=== PATIENT | male | born 1965 | race Caucasian/White ===

== ENCOUNTER 2018-07-31 08:02 | Inpatient (IN) ==
--- NOTE | 2018-07-31 09:16 | ED ---
HPI General Chief Complaint: Psychiatric Symptoms Stated Complaint: Psych Eval Time Seen by Provider: 07/31/18 08:25 Source: patient Mode of arrival: ambulatory Limitations: no limitations History of Present Illness HPI Narrative: 53-year-old male with a history of diabetes mellitus type II and a mental health disorder. Pt was brought from [facility] for evaluation of "pain all over". When asked patient why he was here, he said I do not know. Obtaining history was rather challenging as patient denies any medical problems although his paperwork says otherwise. He denies fever, chills, nausea, vomiting or diarrhea. Denies chest pain or shortness of breath. Denies abdominal pain. He says "he needs a full body scan". He does not tell me why. He then asks for 3LPM oxygen although he does not use this at home. Related Data Home Medications Medication Instructions Recorded Confirmed citalopram 20 mg PO DAILY 07/31/18 07/31/18 diltiazem HCl 180 mg PO DAILY 07/31/18 07/31/18 hydrochlorothiazide 12.5 mg PO DAILY 07/31/18 07/31/18 lorazepam 1 mg PO DAILY 07/31/18 07/31/18 metformin 500 mg PO BID 07/31/18 07/31/18 potassium chloride 10 meq PO DAILY 07/31/18 07/31/18 quetiapine 300 mg PO DAILY 07/31/18 07/31/18 tamsulosin 0.4 mg PO DAILY 07/31/18 07/31/18 Allergies Allergy/AdvReac Type Severity Reaction Status Date / Time bupropion [From Wellbutrin] Allergy Hives Verified 07/31/18 08:29 penicillin G Allergy Hives Verified 07/31/18 08:29 Review of Systems ROS: all other systems reviewed are negative [facility] Medical History Medical History Bipolar disorder (Acute) Diabetes (Acute) HTN (hypertension) (Acute) Surgical History Surgical History No history of previous surgery (Acute) Social History Social History Substance History: Active Abuse Second Hand Smoke Exposure: No Smoking Status: Never smoker How Often Do You Have a Drink Containing Alcohol: Never Recent Travel in [facility] within the Last 8 Weeks: No Recent Out of Country Travel within the Last 8 Weeks: No Immunization History Tetanus Immunization: Unsure Exam Narrative Exam Narrative: GENERAL: WD, WN easily agitated, morbidly obese SKIN: Focused skin assessment warm/dry. HEAD: Atraumatic. Normocephalic. EYES: Pupils equal and round. No scleral icterus. No injection or drainage. ENT: No nasal bleeding or discharge. Mucous membranes pink and moist. NECK: Trachea midline. No JVD. CARDIOVASCULAR: Regular rate and rhythm. No murmur appreciated. RESPIRATORY: No accessory muscle use. Clear to auscultation. Breath sounds equal bilaterally. GASTROINTESTINAL: Abdomen protuberant, soft, non-tender, nondistended. Hepatic and splenic margins not palpable. MUSCULOSKELETAL: No obvious deformities. No clubbing. No cyanosis. No edema. No TTP to calves NEUROLOGICAL: Awake and alert. No obvious cranial nerve deficits. Motor grossly within normal limits. Normal speech. Psych Appearance: disheveled Mental Status: mental status grossly normal Speech and Movement: agitated Mood: expansive, paranoid and irritable mood Affect: labile affect Attitude: belligerent Thought Process: confabulating and flight of ideas Thought Content: delusions Judgment: poor Course Initial Documented Vital Signs Temperature 98.6 F 07/31/18 08:22 Pulse Rate 93 H 07/31/18 08:22 Respiratory Rate 22 07/31/18 08:22 Blood Pressure 155/71 H 07/31/18 08:22 Pulse Oximetry 96 07/31/18 08:22 Last Documented Vital Signs Temperature 98.2 F 07/31/18 22:00 Pulse Rate 104 H 07/31/18 22:00 Respiratory Rate 18 07/31/18 22:00 Blood Pressure 175/84 H 07/31/18 22:00 Pulse Oximetry 97 07/31/18 22:00 Medical Decision Making CHARBEL Attestation CHARBEL supervised visit: Yes Attestation: I, Dr. Graham, have reviewed the advance practice practitioner's documentation and am in agreement, met with the patient face to face, made the diagnosis, and the medical decision making was done by me. *My assessment and Findings: Patient is a 52-year-old male who presents " because people think I'm bat sh*t crazy." He states that he has fallen recently and does have some shortness of breath which is chronic and unchanged. While speaking with him he repeatedly made remarks such as "Oh the things I would do to you in bed," "She has a demon in her, but she's fighting him off ... and now she is saved, I saved her," "Do you know why I, God, created women ... yea, you know." He is delusional with disorganized thinking and flight of ideas. He was then placed under a Graham Act and medications were given. Imaging and labs unremarkable. He has been medically cleared to be seen by psychiatry. [facility] Narrative Medical decision making narrative: 53-year-old male presents to the emergency department via [facility] directly from [facility]. After obtaining a further history with the assistance of the nurse, was able to explain that patient was at [facility], was Graham acted and then went to [facility]. Graham act was lifted at [facility] and was transported to [facility]. stated that patient has had an "erratic behavior" for 2 weeks for an unknown reason. At the time of obtaining further history, additional labs and imaging studies ordered. Labs and imaging studies stable. He is medically cleared to see psych. Medical Screen Exam Complete: Yes Emergency Medical Condition: Yes Differential Diagnosis Differential Diagnosis: psychosis, delirium, polysubstance abuse, Lab Data Result diagrams: 07/31/18 09:35 07/31/18 09:35 Lab Results 07/31/18 07/31/18 07/31/18 Range/Units 09:35 09:35 09:35 WBC 6.9 (4.0-11.0) th/mm3 RBC 5.06 (4.50-5.90) mil/mm3 Hgb 15.1 (13.0-17.0) gm/dL Hct 45.6 (39.0-51.0) % MCV 90.1 (80.0-100.0) fL MCH 29.9 (27.0-34.0) pg MCHC 33.2 (32.0-36.0) % RDW 15.1 (11.6-17.2) % Plt Count 337 (150-450) th/mm3 MPV 7.9 (7.0-11.0) fL Neut % (Auto) 56.0 (16.0-70.0) % Lymph % (Auto) 25.5 (9.0-44.0) % [place] % (Auto) 12.4 H (0.0-8.0) % Eos % (Auto) 5.2 H (0.0-4.0) % Baso % (Auto) 0.9 (0.0-2.0) % Neut # (Auto) 3.9 (1.8-7.7) th/mm3 Lymph # (Auto) 1.8 (1.0-4.8) th/mm3 [place] # (Auto) 0.9 (0.0-0.9) th/mm3 Eos # (Auto) 0.4 (0.0-0.4) th/mm3 Baso # (Auto) 0.1 (0.0-0.2) th/mm3 WBC Differential . Differential Comment Auto diff final Sodium 135 L (136-145) meq/L Potassium 4.6 (3.5-5.1) meq/L Chloride 100 (98-107) meq/L Carbon Dioxide 24.1 (21.0-32.0) meq/L Anion Gap 11 (5-15) meq/L BUN 16 (7-18) mg/dL Creatinine 1.29 (0.60-1.30) mg/dL Estimated GFR 59 L (>89) mL/min Random Glucose 98 (74-106) mg/dL Calcium 9.4 (8.5-10.1) mg/dL Total Bilirubin 0.5 (0.2-1.0) mg/dL AST 48 H (15-37) U/L ALT 47 (12-78) U/L Alkaline Phosphatase 57 (45-117) U/L Total Protein 8.4 H (6.4-8.2) g/dL Albumin 4.0 (3.4-5.0) g/dL TSH 0.924 (0.358-3.740) uIU/mL Urine Color (Yellw/Straw) Urine Clarity (Clear) Urine pH (5.0-8.5) Ur Specific [place] (1.002-1.035) Urine Protein (Neg-Trace) mg/dL Urine Glucose (UA) (Negative) mg/dL Urine Ketones (Negative) mg/dL Urine Occult Blood (Negative) Urine Nitrate (Negative) Urine Bilirubin (Negative) Urine Urobilinogen (Less than 2) mg/dL Ur Leukocyte Esterase (Negative) Micro UA Comment Ur Microscopic Review Urine Culture Comments Urine Opiates Screen (Neg) Ur Barbiturates Screen (Neg) Ur Amphetamines Screen (Neg) U Benzodiazepines Scrn (Neg) Urine Cocaine Screen (Neg) U Cannabinoids Screen (Neg) Serum Alcohol Less than 3 (0-5) mg/dL 08/01/18 08/01/18 Range/Units 00:27 00:27 WBC (4.0-11.0) th/mm3 RBC (4.50-5.90) mil/mm3 Hgb (13.0-17.0) gm/dL Hct (39.0-51.0) % MCV (80.0-100.0) fL MCH (27.0-34.0) pg MCHC (32.0-36.0) % RDW (11.6-17.2) % Plt Count (150-450) th/mm3 MPV (7.0-11.0) fL Neut % (Auto) (16.0-70.0) % Lymph % (Auto) (9.0-44.0) % [place] % (Auto) (0.0-8.0) % Eos % (Auto) (0.0-4.0) % Baso % (Auto) (0.0-2.0) % Neut # (Auto) (1.8-7.7) th/mm3 Lymph # (Auto) (1.0-4.8) th/mm3 [place] # (Auto) (0.0-0.9) th/mm3 Eos # (Auto) (0.0-0.4) th/mm3 Baso # (Auto) (0.0-0.2) th/mm3 WBC Differential Differential Comment Sodium (136-145) meq/L Potassium (3.5-5.1) meq/L Chloride (98-107) meq/L Carbon Dioxide (21.0-32.0) meq/L Anion Gap (5-15) meq/L BUN (7-18) mg/dL Creatinine (0.60-1.30) mg/dL Estimated GFR (>89) mL/min Random Glucose (74-106) mg/dL Calcium (8.5-10.1) mg/dL Total Bilirubin (0.2-1.0) mg/dL AST (15-37) U/L ALT (12-78) U/L Alkaline Phosphatase (45-117) U/L Total Protein (6.4-8.2) g/dL Albumin (3.4-5.0) g/dL TSH (0.358-3.740) uIU/mL Urine Color Colorless (Yellw/Straw) Urine Clarity Clear (Clear) Urine pH 6.0 (5.0-8.5) Ur Specific [place] 1.001 L (1.002-1.035) Urine Protein Negative (Neg-Trace) mg/dL Urine Glucose (UA) Negative (Negative) mg/dL Urine Ketones Negative (Negative) mg/dL Urine Occult Blood Negative (Negative) Urine Nitrate Negative (Negative) Urine Bilirubin Negative (Negative) Urine Urobilinogen Less than 2 (Less than 2) mg/dL Ur Leukocyte Esterase Negative (Negative) Micro UA Comment Culture not ind Ur Microscopic Review Not Reportable Urine Culture Comments Culture not ind Urine Opiates Screen Neg (Neg) Ur Barbiturates Screen Neg (Neg) Ur Amphetamines Screen Neg (Neg) U Benzodiazepines Scrn Neg (Neg) Urine Cocaine Screen Neg (Neg) U Cannabinoids Screen Neg (Neg) Serum Alcohol (0-5) mg/dL Imaging Data Radiologist's impression: Head CT 07/31/18 08:56 CONCLUSION: 1. No acute intracranial abnormalities seen. 2. Maxillary sinus disease. . Chest X-Ray 07/31/18 10:24 CONCLUSION: No acute cardiopulmonary process. Discharge Plan Discharge Disposition Patient Disposition: 30 Still Patient Discharge Condition Condition: Stable Discharge Details Diagnosis: Schizophrenia Physicians Team ED Provider: Marlen Graham ED Midlevel Provider: Ileana Santos Primary Care Provider: UNKNOWN, Rxs /Orders / Referrals /Forms Prescriptions: No Action metformin 500 mg Tablet 500 mg PO BID RF: 0 potassium chloride 10 mEq Capsule, Extended Release 10 meq PO DAILY RF: 0 quetiapine 300 mg Tablet 300 mg PO DAILY RF: 0 citalopram 20 mg Tablet 20 mg PO DAILY RF: 0 tamsulosin 0.4 mg Capsule 0.4 mg PO DAILY RF: 0 lorazepam 1 mg Tablet 1 mg PO DAILY RF: 0 diltiazem HCl 180 mg Capsule,Ext.Rel 24h Degradable 180 mg PO DAILY RF: 0 hydrochlorothiazide 12.5 mg Tablet 12.5 mg PO DAILY RF: 0 Status ED Status: Medically Cleared
[2018-07-31 09:46] LABS: Baso # (Auto) 0.1 th/mm3 (0.0-0.2); Baso % (Auto) 0.9 % (0.0-2.0); Eos # (Auto) 0.4 th/mm3 (0.0-0.4); Eos % (Auto) 5.2 % (0.0-4.0); Hematocrit 45.6 % (39.0-51.0); Hemoglobin 15.1 gm/dL (13.0-17.0); Lymph # (Auto) 1.8 th/mm3 (1.0-4.8); Lymph % (Auto) 25.5 % (9.0-44.0); Mean Corpuscular HGB Conc 33.2 % (32.0-36.0); Mean Corpuscular Hemoglobin 29.9 pg (27.0-34.0); Mean Corpuscular Volume 90.1 fL (80.0-100.0); Mean Platelet Volume 7.9 fL (7.0-11.0); Mono # (Auto) 0.9 th/mm3 (0.0-0.9); Mono % (Auto) 12.4 % (0.0-8.0); Neut # (Auto) 3.9 th/mm3 (1.8-7.7); Platelet Count 337 th/mm3 (150-450); Red Blood Count 5.06 mil/mm3 (4.50-5.90); Red Cell Distribution Width 15.1 % (11.6-17.2); White Blood Count 6.9 th/mm3 (4.0-11.0)
[2018-07-31] MEDS ORDERED: Haloperidol Inj 5 MG/ML Ampul IM ONE (09:57)
[2018-07-31 10:05] LABS: Alanine Aminotransferase 47 U/L (12-78)
[2018-07-31 10:15] LABS: Alkaline Phosphatase 57 U/L (45-117); Thyroid Stimulating Hormone 0.924 uIU/mL (0.358-3.740); Total Protein 8.4 g/dL (6.4-8.2)
[2018-07-31 10:23] LABS: Anion Gap 11 meq/L (5-15); Aspartate Aminotransferase 48 U/L (15-37); Blood Urea Nitrogen 16 mg/dL (7-18); Calcium 9.4 mg/dL (8.5-10.1); Carbon Dioxide 24.1 meq/L (21.0-32.0); Chloride 100 meq/L (98-107); Glomerular Filtration Rate 59 mL/min (>89); Glucose,Random 98 mg/dL (74-106); Potassium 4.6 meq/L (3.5-5.1); Sodium 135 meq/L (136-145)
--- NOTE | 2018-07-31 10:49 | CT ---
EXAM DATE: 07/31/2018 8:59 AM EDT AGE/SEX: 53 years / Male INDICATIONS: Altered Mental Status CLINICAL DATA: This is the patient's initial encounter. Patient reports that signs and symptoms have been present for 1 day and indicates a pain score of 0/10. MEDICAL/SURGICAL HISTORY: Diabetes. Hypertension. None. RADIATION DOSE: 66.34 CTDI (mGy) COMPARISON: . TECHNIQUE: CT of the head without contrast. Using automated exposure control and adjustment of the mA and/or kV according to patient size, radiation dose was kept as low as reasonably achievable to ob tain optimal diagnostic quality images. DICOM format image data is available electronically for revi ew and comparison. FINDINGS: Cerebrum: The ventricles are normal for age. No evidence of midline shift, mass lesion, hemorrhage or acute infarction. No extraaxial fluid collections are seen. Posterior Fossa: The cerebellum and brainstem are intact. The 4th ventricle is midline. The cerebe llopontine angle is unremarkable. Extracranial: The visualized portion of the orbits is intact. There is mucosal disease at the maxill leodan sinuses. Skull: The calvaria is intact. No evidence of skull fracture. CONCLUSION: 1. No acute intracranial abnormalities seen. 2. Maxillary sinus disease. . Electronically signed by: Cory Cary MD 07/31/2018 10:48 AM EDT
--- NOTE | 2018-07-31 12:07 | XR ---
EXAM DATE: 07/31/2018 10:24 AM EDT AGE/SEX: 53 years / Male INDICATIONS: Shortness of breath. CLINICAL DATA: This is the patient's initial encounter. Patient reports that signs and symptoms have been present for 1 day and indicates a pain score of 0/10. MEDICAL/SURGICAL HISTORY: . SVT. None. COMPARISON: . FINDINGS: There appears to be some blurring of the left lateral chest. This is likely technical. The lungs appe ar grossly clear. The heart size is normal. CONCLUSION: No acute cardiopulmonary process. Electronically signed by: Cory Cary MD 07/31/2018 12:05 PM EDT
[2018-08-01 00:44] LABS: Amphetamine Screen,Urine Neg (Neg); Barbiturate Screen,Urine Neg (Neg); Bilirubin,Urine Negative (Negative); Cannabinoid Screen,Urine Neg (Neg); Clarity,Urine Clear (Clear); Cocaine Screen,Urine Neg (Neg); Color,Urine Colorless (Yellw/Straw); Glucose,Urine (UA) Negative (Negative); Leukocyte Esterase,Urine Negative (Negative); Nitrite,Urine Negative (Negative); Specific Gravity,Urine 1.001 (1.002-1.035)
[2018-08-01 00:48] LABS: Opiate Screen,Urine Neg (Neg)
[2018-08-01] MEDS ORDERED: Bisacodyl 10 MG Supp RECTAL PRN (09:50)
[2018-08-01] MEDS ORDERED: Aluminum/Magnesium/Simethacone Susp 30 ML UDC PO PRN (09:50)
[2018-08-01] MEDS ORDERED: ARIPiprazole 5 MG Tablet PO SCH (11:45)
--- NOTE | 2018-08-01 11:55 | P.HPPSY ---
Provisional Diagnosis Admission Date: August 01, 2018 09:51 [place] I.: Unspecified psychosis, R/O schizophrenia, r/o bipolar disorder with psychotic features,r/o schizoaffective disorder [place] II.: Deferred [place] III.: Diabetes, hypertension, sleep apnea, SVT Competence Certification of Person's Competence To Provide Express and Informed Consent I have personally examined Andres Monge, a person being served at [facility] on, August 01, 2018 1141. Express and informed consent means consent voluntarily given in writing, by a competent person, after sufficient explanation and disclosure of the subject matter involved to enable the person to make a knowing and willful decision without any element of force, fraud, deceit, duress, or other form of constraint or coercion. This person is 18 years of age or older, is not now known to be incompetent to consent to treatment with a guardian advocate, and does not have a health care surrogate or proxy currently making medical treatment decisions. I have found this person to be one of the following: [] Competent to provide express and informed consent, as defined above, for voluntary admission to this facility and is competent to provide express and informed consent for treatment. He/she has the consistent capacity to make well reasoned, willful, and knowing decisions concerning his or her medical or mental health treatment. The person fully and consistently understands the purpose of the admission for examination/placement and is fully capable of personally exercising all rights assured [place] [] Incompetent to provide express and informed consent to voluntary admission, and this is incompetent to provide express and informed consent to treatment. The person must be transferred to involuntary status and a petition for a guardian advocate filed with the Circuit Court. [x] Refusing to provide express and informed consent to voluntary admission but is competent to provide express and informed consent for treatment. The person must be discharged or transferred to involuntary status. Form shall be completed within 24 hours of a person's arrival at the receiving facility and filed in the clinical record of each person: 1. Admitted on a voluntary basis 2. Permitted to provide express and informed consent to his/her own treatment 3. Allowed to transfer from involuntary to voluntary status 4. Prior to permitting a person to consent to his or her own treatment after having been previously found incompetent to consent to treatment. History of Present Illness Capacity: Has capacity History of Present Illness: The patient is a 53-year-old man, domiciled with his in [place], unemployed, supported by [facility], with a psychiatric history of bipolar disorder, schizophrenia, cannabis use disorder, he denies previous psychiatric admissions , denies previous suicide attempts, he is not in psychotropics, he has a significant medical history of diabetes, hypertension, and diabetes, sleep apnea , who was brought from [facility] for evaluation of "pain all over". When asked patient why he was here, he said I do not know. Obtaining history was rather challenging as patient denies any medical problems although his paperwork says otherwise. The patient was transferred from medicine to psychiatry due to disorganized speech, significant delusional thought process. Chart was reviewed. No collateral information available at this moment. On my psychiatric evaluation I find a patient that is quite agitated, with expansive affect, and stating that he does not want to speak with anybody unless "you are proven [employer]". When I asked the patient how is he doing, his answer is "I know that you know what is going on, if you read the newspaper, you will known what is going on right now". He says that decreased him people have been persecuted since yesterday and his is behind a plate with the FBI to kill him. He says that he does not feel safe in the unit, "there are black people here that have been watching at me through the camera". He says that everything started when he discovered that his has a boyfriend "and they both have been plotting to kill me". The patient is quite talkative, tangential , at times disorganized, very perseverant, but he is redirectable. He denies suicidal and homicidal ideation, he denies visual and auditory hallucinations, has prominent paranoia, delusions of reference, thought broadcasting. He is fully oriented x3, no attention deficit, no filtration of consciousness present at this moment He says that he was diagnosed with schizophrenia and bipolar disorder by mistake many years ago, he says that he went to the [facility] to take his son who is bipolar for treatment, "and they turned on me stating that I was also bipolar". He denies ever being psychotropic medications, he denies the use of illegal drugs or alcohol. As per staff, the patient has been intrusive in the unit, making accusations, loud at times, mostly redirectable, but some point last night he needed Haldol 10 mg IM to calm down PPHx: psychiatric history of bipolar disorder, schizophrenia, cannabis use disorder, he denies previous psychiatric admissions, denies previous suicide attempts, he is not in psychotropics PMHx: he has a significant medical history of diabetes, hypertension, and diabetes, sleep apnea Substance Hx: He denies the use of illegal drugs and alcohol Family Hx : Son is bipolar, he has a sister with schizophrenia Social Hx: The patient was born and raised in [place] [facility], he lives in [place] with his , unemployed, supported by [facility], his highest level of education is some college. - Inpatient Certification I certify that the inpatient services were ordered in accordance with Medicare regulations governing the order. This includes certification that hospital inpatient services are reasonable and necessary and in the case of services not specified as inpatient-only under 42 CFR 419.22(n), that they are appropriately provided as inpatient services in accordance to with the 2-midnight benchmark under 43 CFR 412.3(e) I certify that inpatient psychiatric hospital services are medically necessary. Evaluation and treatment and/or diagnostic testing are expected to improve the patient's condition. The patient needs on a daily basis, active treatment furnished directly by or requiring the supervision of inpatient psychiatric facility personnel. Estimated Total Length of Stay (Days): 7 Plans for Post Hospital Care: Home Review of Systems All other systems reviewed negative except as stated in HPI Psychiatric: Reports difficulty concentrating, Reports irritability, Reports mood swings, Reports paranoia PMFSH - History History Provided By: Patient - Medical History Medical History: Medical History (Last Updated 07/31/18 @ 08:35 by Inez Guerrero) Bipolar disorder Diabetes HTN (hypertension) - Surgical History Surgical History: Surgical History (Last Updated 07/31/18 @ 08:35 by Inez Guerrero) No history of previous surgery - Tobacco History Second Hand Smoke Exposure: No Smoking Status: Never smoker - Alcohol History How Often Do You Have a Drink Containing Alcohol: Never - Substance Use History Substance History: Active Abuse - Substance Use Type Marijuana Status: Active Route Used: By Mouth - Travel History Recent Travel in the [place] Within the Last 8 Weeks: No Recent Travel Out of the Country Within the Last 8 Weeks: No - Immunization History Tetanus Immunization: Unsure Medications and Allergies Active Medications: Active Medications Al Hydrox/Mg Hydrox/Simethicone (Mag-Al Plus Susp Liq) 30 ml PO Q6H PRN PRN Reason: DYSPEPSIA Al Hydroxide/Mg Hydroxide (Milk Of Magnesia Liq) 30 ml PO Q12H PRN PRN Reason: Mild Constipation Aripiprazole (Abilify) 5 mg PO DAILY [facility] Bisacodyl (Dulcolax Supp) 10 mg RECTAL DAILY PRN PRN Reason: SEVERE CONSITIPATION Lactulose (Lactulose Liq) 30 ml PO DAILY PRN PRN Reason: SEVERE CONSITIPATION Senna/Docusate Sodium (Reba-Colace) 1 tab PO BID [facility] Sennosides (Senokot) 17.2 mg PO Q12H PRN PRN Reason: Moderate Constipation Allergies Allergy/AdvReac Type Severity Reaction Status Date / Time bupropion [From Wellbutrin] Allergy Hives Verified 07/31/18 08:29 penicillin G Allergy Hives Verified 07/31/18 08:29 Home Medications Medication Instructions Recorded Confirmed Type citalopram 20 mg PO DAILY 07/31/18 07/31/18 History diltiazem HCl 180 mg PO DAILY 07/31/18 07/31/18 History hydrochlorothiazide 12.5 mg PO DAILY 07/31/18 07/31/18 History lorazepam 1 mg PO DAILY 07/31/18 07/31/18 History metformin 500 mg PO BID 07/31/18 07/31/18 History potassium chloride 10 meq PO DAILY 07/31/18 07/31/18 History quetiapine 300 mg PO DAILY 07/31/18 07/31/18 History tamsulosin 0.4 mg PO DAILY 07/31/18 07/31/18 History Results - Labs CBC & Chem 7: 07/31/18 09:35 07/31/18 09:35 Labs: Laboratory Results - last 24 hr 08/01/18 08/01/18 00:27 00:27 Urine Color Colorless Urine Clarity Clear Urine pH 6.0 Ur Specific [place] 1.001 L Urine Protein Negative Urine Glucose (UA) Negative Urine Ketones Negative Urine Occult Blood Negative Urine Nitrate Negative Urine Bilirubin Negative Urine Urobilinogen Less than 2 Ur Leukocyte Esterase Negative Micro UA Comment Culture not ind Ur Microscopic Review Not Reportable Urine Culture Comments Culture not ind Urine Opiates Screen Neg Ur Barbiturates Screen Neg Ur Amphetamines Screen Neg U Benzodiazepines Scrn Neg Urine Cocaine Screen Neg U Cannabinoids Screen Neg - Imaging Impressions Chest X-Ray 07/31/18 10:24 CONCLUSION: No acute cardiopulmonary process. Exam Vital signs: Vital Signs 07/31/18 18:00 07/31/18 22:00 Temperature 98.6 F 98.2 F Pulse Rate 97 H 104 H Respiratory Rate 18 18 Blood Pressure 172/99 H 175/84 H Pulse Oximetry 96 97 Intake & Output 07/31/18 08/01/18 08/01/18 18:59 06:59 18:59 Weight 178.2 kg Narrative: No tremors, no EPS, no psychomotor agitation or retardation, no gait disturbance - Constitutional mild distress - Routine HEENT Exam Head: Present: normocephalic, atraumatic Eye: Present: EOMI, PERRL ENT: Present: mucous membranes moist Mental Status Examination Appearance: Dirty, Disheveled Consciousness: Alert Orientation: x4 Motor Activity: Normal gait Speech: Unremarkable Language: Adequate Fund of Knowledge: Adequate Attention and Concentration: Adequate Memory: Unremarkable Mood: Appropriate Affect: Appropriate Thought Process & Associations: Tangential Thought Content: Bizarre thinking, Ideas of reference, Derealization, Preoccupations, Delusional Hallucination Type: None Delusion Type: Bizarre, Paranoid Suicidal Ideation: No Suicidal Plan: No Suicidal Intention: No Homicidal Ideation: No Homicidal Plan: No Homicidal Intention: No Insight: Poor Judgment: Poor Assessment and Plan - Assessment (1) Unspecified psychosis Code(s): F29 - Unspecified psychosis not due to a substance or known physiological condition Status: Acute - Plan Plan: Estimated LOS: [] days On psychiatric evaluation today I find a patient that is acutely delusional, with prominent paranoia and reality distortion, delusions of reference, thought broadcasting, a little bit agitated, quite difficult to handle in the unit, making accusations towards staff, has needed ETO's in order to calm him down. The patient reports past psychiatric history of schizophrenia, bipolar disorder , but he denies previous psychiatric hospitalizations, he denies previous suicide attempts, he is not in psychotropics at this moment. Given his level of psychosis the patient has increased risk of danger to self and others as well as self neglecting behavior. Patient needs psychiatric admission for stabilization. Given her multiple comorbidities I will start Abilify 5 mg daily , also with the idea of bridging him to Abilify Maintena. Patient will be transferred to E. will consult psychiatry for second opinion, will consult hospitalist to manage multiple medical conditions. Support, motivational psychoeducation provided. Justification for Continued Inpatient Stay: Patient will be admitted in psychiatry.
[2018-08-01] MEDS ORDERED: Dextrose 50% in Water 50 ML Vial IV.PUSH PRN (14:36)
--- NOTE | 2018-08-01 14:53 | P.CON ---
History of Present Illness Service: [facility] Consult date: 08/01/18 Requesting Physician: Wes Sethi Reason for Consult: Medical management Primary Care Provider: UNKNOWN History of Present Illness: Mr. Monge is a 53-year-old white male with significant past medical history bipolar disease, schizophrenia, cannabis use, hypertension, obesity, type 2 diabetes, sleep apnea uses CPAP, SVT, frequent psychiatric admissions. Patient is examined with the tech at bedside. Patient initially presented to [facility] for evaluation of "pain all over". During evaluation in the ER, patient was found with disorganized speech, delusional. Per discussion with nursing, patient has been in and out of psychiatric facilities in the last couple of weeks. Hospitalist services are requested to assist with medical management. Patient endorses he uses CPAP at home for history of sleep apnea. He has type 2 diabetes for which she is on metformin, states that was given also to help her lose weight. Indicates that he has not slept in over 50 hours and is very tired and just wants to go upstairs to take a nap. He denies any chest pain, no shortness of breath. Has history of pedal edema for which he is on hydrochlorothiazide. No history of CHF. Denies any recent fevers, chills. Endorses constipation. Voiding well. He denies history of bipolar disease and schizophrenia, indicates he is here because his got mad at him. He denies use of alcohol, no tobacco abuse. Indicates that he smokes marijuana because "it is legal". Has no other complaints at this time. Review of Systems All other systems reviewed negative except as stated in HPI PMFSH - History History Provided By: Patient - Medical History Medical History: Medical History (Last Updated 08/01/18 @ 14:39 by AGUILAR Caicedo) Bipolar disorder DDD (degenerative disc disease) Diabetes HTN (hypertension) Meniscal injury Obesity Pedal edema SVT (supraventricular tachycardia) Sleep apnea - Surgical History Surgical History: Surgical History (Last Updated 08/01/18 @ 14:39 by AGUILAR Caicedo) Hx of left knee surgery No history of previous surgery - Family History Family History: Family History (Last Updated 08/01/18 @ 14:40 by AGUILAR Caicedo) Father CAD (coronary artery disease) Son Bipolar disorder - Social History I have reviewed the patient's Social History: Yes - Tobacco History Second Hand Smoke Exposure: No Smoking Status: Never smoker - Alcohol History How Often Do You Have a Drink Containing Alcohol: Never - Substance Use History Substance History: Active Abuse - Substance Use Type Marijuana Status: Active Route Used: By Mouth - Travel History Recent Travel in the [place] Within the Last 8 Weeks: No Recent Travel Out of the Country Within the Last 8 Weeks: No - Immunization History Tetanus Immunization: Unsure Medications and Allergies Active Medications: Active Medications Al Hydrox/Mg Hydrox/Simethicone (Mag-Al Plus Susp Liq) 30 ml PO Q6H PRN PRN Reason: DYSPEPSIA Al Hydroxide/Mg Hydroxide (Milk Of Magnesia Liq) 30 ml PO Q12H PRN PRN Reason: Mild Constipation Aripiprazole (Abilify) 5 mg PO DAILY [facility] Last Admin: 08/01/18 13:10 Dose: 5 mg Bisacodyl (Dulcolax Supp) 10 mg RECTAL DAILY PRN PRN Reason: SEVERE CONSITIPATION Dextrose (D50w Vial) 50 ml IV.PUSH UNSCH PRN PRN Reason: PER HYPOGLYCEMIA PROTOCOL Lactulose (Lactulose Liq) 30 ml PO DAILY PRN PRN Reason: SEVERE CONSITIPATION Metformin HCl (Glucophage) 500 mg PO BID [facility] Non-Formulary Medication (Hydrochlorothiazide [Hydrochlorothiazide]) 12.5 mg PO DAILY [facility] Non-Formulary Medication (Diltiazem Hcl [Diltiazem Hcl]) 180 mg PO DAILY [facility] Potassium Chloride (Kcl) 10 meq PO DAILY [facility] Senna/Docusate Sodium (Reba-Colace) 1 tab PO BID [facility] Sennosides (Senokot) 17.2 mg PO Q12H PRN PRN Reason: Moderate Constipation Tamsulosin HCl (Flomax) 0.4 mg PO DAILY [facility] Allergies Allergy/AdvReac Type Severity Reaction Status Date / Time bupropion [From Wellbutrin] Allergy Hives Verified 07/31/18 08:29 penicillin G Allergy Hives Verified 07/31/18 08:29 Home Medications Medication Instructions Recorded Confirmed Type citalopram 20 mg PO DAILY 07/31/18 07/31/18 History diltiazem HCl 180 mg PO DAILY 07/31/18 07/31/18 History hydrochlorothiazide 12.5 mg PO DAILY 07/31/18 07/31/18 History lorazepam 1 mg PO DAILY 07/31/18 07/31/18 History metformin 500 mg PO BID 07/31/18 07/31/18 History potassium chloride 10 meq PO DAILY 07/31/18 07/31/18 History quetiapine 300 mg PO DAILY 07/31/18 07/31/18 History tamsulosin 0.4 mg PO DAILY 07/31/18 07/31/18 History Physical Exam Vital signs: Vital Signs 07/31/18 18:00 07/31/18 22:00 08/01/18 11:12 Temperature 98.6 F 98.2 F Pulse Rate 97 H 104 H 89 Respiratory Rate Blood Pressure 172/99 H 175/84 H 153/82 H Pulse Oximetry 96 97 97 Intake & Output 07/31/18 08/01/18 08/01/18 18:59 06:59 18:59 Weight 178.2 kg Narrative: GENERAL: 53-year-old obese male. No apparent distress. SKIN: Warm and dry. HEAD: Atraumatic. Normocephalic. EYES: Pupils equal and round. No scleral icterus. No injection or drainage. ENT: No nasal bleeding or discharge. Mucous membranes pink and moist. NECK: Trachea midline. No JVD. CARDIOVASCULAR: Regular rate and rhythm. RESPIRATORY: No accessory muscle use. Clear to auscultation. Breath sounds equal bilaterally. Poor inspiratory effort. GASTROINTESTINAL: Abdomen soft, non-tender, nondistended. Hepatic and splenic margins not palpable. MUSCULOSKELETAL: Extremities without clubbing, cyanosis, or edema. No obvious deformities. Left knee scar NEUROLOGICAL: Awake, alert oriented x3. No focal deficits. Speech is clear. PSYCHIATRIC: Mildly anxious Assessment and Plan - Plan 53-year-old male with history of bipolar disease, schizophrenia, hypertension, diabetes, SVT, sleep apnea. According to [place] with delusions, disorganized thinking. Recent hospital admissions to psychiatric facilities in [place]. Patient to be admitted to medical psych Bipolar disease, schizophrenia Psychosis Continue with psychiatric management Sleep apnea Patient is okay to use CPAP from home, to bring Type 2 diabetes Resume metformin Accu-Cheks before meals and at bedtime with insulin therapy Hypertension Pedal edema History of SVT -Continue hydrochlorothiazide and daily potassium -Continue Cardizem Obesity Patient needs to lose weight Diabetic diet Enlarged prostate Continue with Flomax Labs reviewed, stable other than mild elevation in AST CT of the head negative Chest x-ray no significant findings DVT prophylaxispatient is ambulatory Plan of care discussed with patient and RN. Thank you for this consultation Code Status: Full Discussed Condition With: Pt, handkerchief cutter Planning: Per primary care team
[2018-08-01] MEDS: Insulin NovoLOG Aspart Correctional Sugar Inj SQ SCH ×2 (17:32→20:47)
[2018-08-01] MEDS: Senna/Docusate Sodium 8.6/50 MG Tablet PO SCH (20:47)
[2018-08-02 07:50] LABS: Calcium 8.8 mg/dL (8.5-10.1); Carbon Dioxide 28.8 meq/L (21.0-32.0)
[2018-08-02 07:54] LABS: Chol/HDL Ratio 2.24 Ratio; HDL Cholesterol 54.4 mg/dL (40.0-60.0)
--- NOTE | 2018-08-02 08:20 | P.CONPSY ---
Provisional Diagnosis Admission Date: August 01, 2018 09:51 [place] I.: Unspecified psychosis, R/O schizophrenia, r/o bipolar disorder with psychotic features,r/o schizoaffective disorder [place] II.: Deferred [place] III.: Diabetes, hypertension, sleep apnea, SVT History of Present Illness Service: Psychiatry Consult date: 08/02/18 Requesting Physician: Wes Sethi Reason for Consult: Second opinion Primary Care Provider: UNKNOWN [facility] - History History Provided By: Patient - Medical History Medical History: Medical History (Last Updated 08/01/18 @ 14:39 by AGUILAR Caicedo) Bipolar disorder DDD (degenerative disc disease) Diabetes HTN (hypertension) Meniscal injury Obesity Pedal edema SVT (supraventricular tachycardia) Sleep apnea - Surgical History Surgical History: Surgical History (Last Updated 08/01/18 @ 14:39 by AGUILAR Caicedo) Hx of left knee surgery No history of previous surgery - Family History Family History: Family History (Last Updated 08/01/18 @ 14:40 by AGUILAR Caicedo) Father CAD (coronary artery disease) Son Bipolar disorder - Tobacco History Second Hand Smoke Exposure: No Smoking Status: Never smoker - Alcohol History How Often Do You Have a Drink Containing Alcohol: Never - Substance Use History Substance History: Active Abuse - Substance Use Type Marijuana Status: Active Route Used: By Mouth - Travel History Recent Travel in the USA Within the Last 8 Weeks: No Recent Travel Out of the Country Within the Last 8 Weeks: No - Immunization History Tetanus Immunization: Unsure Medications and Allergies Active Medications: Active Medications Al Hydrox/Mg Hydrox/Simethicone (Mag-Al Plus Susp Liq) 30 ml PO Q6H PRN PRN Reason: DYSPEPSIA Al Hydroxide/Mg Hydroxide (Milk Of Magnesia Liq) 30 ml PO Q12H PRN PRN Reason: Mild Constipation Aripiprazole (Abilify) 5 mg PO DAILY [facility] Last Admin: 08/01/18 13:10 Dose: 5 mg Bisacodyl (Dulcolax Supp) 10 mg RECTAL DAILY PRN PRN Reason: SEVERE CONSITIPATION Dextrose (D50w Vial) 50 ml IV.PUSH UNSCH PRN PRN Reason: PER HYPOGLYCEMIA PROTOCOL Diltiazem HCl (Cardizem Cd 24hr) 180 mg PO DAILY [facility] Glucagon (Glucagon Inj) 1 mg OTHER PRN PRN PRN Reason: for Hypoglycemia Protocol Hydrochlorothiazide (Microzide) 12.5 mg PO DAILY [facility] Insulin Aspart (Novolog Insulin Correctional Sugar Inj) 0 unit SQ ACHS [facility]; Protocol Last Admin: 08/01/18 20:47 Dose: Not Given Lactulose (Lactulose Liq) 30 ml PO DAILY PRN PRN Reason: SEVERE CONSITIPATION Metformin HCl (Glucophage) 500 mg PO BID [facility] Last Admin: 08/01/18 20:47 Dose: 500 mg Potassium Chloride (Kcl) 10 meq PO DAILY [facility] Senna/Docusate Sodium (Reba-Colace) 1 tab PO BID [facility] Last Admin: 08/01/18 20:47 Dose: 1 tab Sennosides (Senokot) 17.2 mg PO Q12H PRN PRN Reason: Moderate Constipation Tamsulosin HCl (Flomax) 0.4 mg PO DAILY [facility] Allergies Allergy/AdvReac Type Severity Reaction Status Date / Time bupropion [From Wellbutrin] Allergy Hives Verified 07/31/18 08:29 penicillin G Allergy Hives Verified 07/31/18 08:29 Home Medications Medication Instructions Recorded Confirmed Type citalopram 20 mg PO DAILY 07/31/18 07/31/18 History diltiazem HCl 180 mg PO DAILY 07/31/18 07/31/18 History hydrochlorothiazide 12.5 mg PO DAILY 07/31/18 07/31/18 History lorazepam 1 mg PO DAILY 07/31/18 07/31/18 History metformin 500 mg PO BID 07/31/18 07/31/18 History potassium chloride 10 meq PO DAILY 07/31/18 07/31/18 History quetiapine 300 mg PO DAILY 07/31/18 07/31/18 History tamsulosin 0.4 mg PO DAILY 07/31/18 07/31/18 History Exam Vital signs: Vital Signs 08/01/18 11:12 08/01/18 15:00 08/01/18 18:04 Temperature 97.7 F 97.4 F L Pulse Rate 89 78 82 Respiratory Rate 18 18 18 Blood Pressure 153/82 H 154/69 H 158/86 H Pulse Oximetry 97 92 L 96 08/02/18 05:29 Temperature 97.5 F L Pulse Rate 79 Respiratory Rate 22 Blood Pressure 110/60 Pulse Oximetry 95 Intake & Output 10/06/1108/02/18 08/02/18 18:59 06:59 18:59 Intake Total 720 / 720 0 / 0 Balance 720 / 720 0 / 0 Weight 168.9 kg Intake: Oral 720 / 720 0 / 0 Other: Weight On Admission 168.9 kg Mental Status Examination Appearance: Dirty, Disheveled Consciousness: Alert Orientation: x4 Motor Activity: Normal gait Speech: Unremarkable Language: Adequate Fund of Knowledge: Adequate Attention and Concentration: Adequate Memory: Unremarkable Mood: Appropriate Affect: Appropriate Thought Process & Associations: Tangential Thought Content: Bizarre thinking, Ideas of reference, Derealization, Preoccupations, Delusional Hallucination Type: None Delusion Type: Bizarre, Paranoid Suicidal Ideation: No Suicidal Plan: No Suicidal Intention: No Homicidal Ideation: No Homicidal Plan: No Homicidal Intention: No Insight: Poor Judgment: Poor Assessment and Plan - Assessment (1) Unspecified psychosis Code(s): F29 - Unspecified psychosis not due to a substance or known physiological condition Status: Acute
[2018-08-02] MEDS: Insulin NovoLOG Aspart Correctional Sugar Inj SQ SCH ×4 (09:17→20:21)
[2018-08-02] MEDS: Potassium Chloride 10 MEQ ER Capsule PO SCH (09:18)
[2018-08-02] MEDS: dilTIAZem CD 180 MG Capsule PO SCH (09:18)
[2018-08-02] MEDS: Senna/Docusate Sodium 8.6/50 MG Tablet PO SCH (09:18)
[2018-08-02] MEDS: ARIPiprazole 10 MG Tablet PO SCH (09:18)
--- NOTE | 2018-08-02 15:09 | P.PN ---
Subjective Interval history: Up on patient with morbid obesity, diabetes, hypertension. Patient seen and examined. Patient encountered in his room. Witnessed ambulate around the room without any difficulty. Denies any acute medical complaints. Denies any chest pain or shortness of breath. Denies any nausea, vomiting or abdominal pain. Discussed with nursing staff, no adverse events noted. Physical Exam Vital signs: Vital Signs 08/01/18 18:04 08/02/18 05:29 Temperature 97.4 F L 97.5 F L Pulse Rate 82 79 Respiratory Rate 18 22 Blood Pressure 158/86 H 110/60 Pulse Oximetry 96 95 Intake & Output 08/01/18 08/02/18 08/02/18 18:59 06:59 18:59 Intake Total 720 / 720 0 / 0 720 / 720 Balance 720 / 720 0 / 0 720 / 720 Weight 168.9 kg Intake: Oral 720 / 720 0 / 0 720 / 720 Other: Weight On Admission 168.9 kg Narrative: GENERAL: Well-developed well-nourished obese male patient, no acute distress. Awake and alert. SKIN: Warm and dry. HEAD: Atraumatic. Normocephalic. EYES: Pupils equal and round. No scleral icterus. No injection or drainage. ENT: No nasal bleeding or discharge. Mucous membranes pink and moist. NECK: Trachea midline. CARDIOVASCULAR: Regular rate and rhythm. RESPIRATORY: No accessory muscle use. Clear to auscultation. Breath sounds equal bilaterally. GASTROINTESTINAL: + Protuberant abdomen. Abdomen soft, non-tender, nondistended. +BS. MUSCULOSKELETAL: Extremities without clubbing or cyanosis. Trace BLE edema. No obvious deformities. Left knee scar. NEUROLOGICAL: Awake. Oriented. Able to move all extremities spontaneously. No focal neurologic finding. Normal speech. PSYCHIATRIC: Mildly anxious. Cooperative with exam. Results - Labs CBC & Chem 7: 07/31/18 09:35 08/02/18 06:54 Laboratory Results - last 24 hr 08/01/18 08/02/18 08/02/18 19:57 06:54 07:06 Sodium 142 Potassium 4.0 Chloride 103 Carbon Dioxide 28.8 Anion Gap 10 BUN 16 Creatinine 1.15 Estimated GFR 67 L POC Glucose 103 90 Random Glucose 84 Calcium 8.8 Triglycerides 108 Cholesterol 122 LDL Cholesterol, Calc 46 HDL Cholesterol 54.4 Cholesterol/HDL Ratio 2.24 Assessment and Plan - Plan 53-year-old male with history of bipolar disease, schizophrenia, hypertension, diabetes, SVT, sleep apnea. According to [place] with delusions, disorganized thinking. Recent hospital admissions to psychiatric facilities in [place]. Patient to be admitted to medical psych Bipolar disease, schizophrenia Psychosis Psychiatric management per primary team Sleep apnea Patient is okay to use CPAP from home, to bring Type 2 diabetes A1c pending Blood sugars well controlled Continue metformin Accu-Cheks before meals and at bedtime with insulin therapy Hypertension Pedal edema History of SVT HR 79 -Continue hydrochlorothiazide and daily potassium -Continue Cardizem -Continue to monitor BP and adjust treatment accordingly Morbid obesity, BMI 58.3 Patient needs to lose weight. Lifestyle modification with dietary changes, regular exercise program, etc. Enlarged prostate Continue with Flomax DVT prophylaxispatient is ambulatory Patient appears stable from hospital standpoint. [facility] will sign off. Please reconsult if needed Code Status: FULL Discussed Condition With: Patient and nursing staff
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
[2018-08-02 17:45] LABS: Hemoglobin A1c 5.8 % (4.3-6.0)
[2018-08-02] MEDS ORDERED: Haloperidol Inj 5 MG/ML Ampul ONE (20:52)
[2018-08-02] MEDS ORDERED: Haloperidol Inj 5 MG/ML Ampul IM STA (21:08)
[2018-08-03] MEDS: Insulin NovoLOG Aspart Correctional Sugar Inj SQ SCH ×4 (07:28→20:48)
[2018-08-03] MEDS: Potassium Chloride 10 MEQ ER Capsule PO SCH (09:12)
[2018-08-03] MEDS: dilTIAZem CD 180 MG Capsule PO SCH (09:12)
[2018-08-03] MEDS: ARIPiprazole 10 MG Tablet PO SCH (09:12)
[2018-08-03] MEDS: Senna/Docusate Sodium 8.6/50 MG Tablet PO SCH ×2 (09:13→20:33)
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
[2018-08-03] MEDS: Ibuprofen 400 MG Tablet PO PRN (12:40)
[2018-08-03 13:20] LABS: Albumin 3.9 g/dL (3.4-5.0); Anion Gap 9 meq/L (5-15); Blood Urea Nitrogen 16 mg/dL (7-18); Calcium 9.6 mg/dL (8.5-10.1); Carbon Dioxide 25.6 meq/L (21.0-32.0); Chloride 100 meq/L (98-107); Glomerular Filtration Rate 62 mL/min (>89); Glucose,Random 119 mg/dL (74-106); Potassium 3.8 meq/L (3.5-5.1); Sodium 135 meq/L (136-145)
[2018-08-03 13:21] LABS: Alanine Aminotransferase 40 U/L (12-78); Aspartate Aminotransferase 26 U/L (15-37)
[2018-08-03 13:23] LABS: Alkaline Phosphatase 60 U/L (45-117); Total Protein 8.1 g/dL (6.4-8.2)
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
[2018-08-03] MEDS: Divalproex 500 MG DR Tablet PO SCH (20:33)
[2018-08-04] MEDS: Senna/Docusate Sodium 8.6/50 MG Tablet PO SCH ×3 (08:49→21:00)
[2018-08-04] MEDS: dilTIAZem CD 180 MG Capsule PO SCH (08:49)
[2018-08-04] MEDS: Potassium Chloride 10 MEQ ER Capsule PO SCH (08:49)
[2018-08-04] MEDS: Divalproex 500 MG DR Tablet PO SCH ×2 (08:49→20:53)
[2018-08-04] MEDS: Insulin NovoLOG Aspart Correctional Sugar Inj SQ SCH ×4 (08:58→21:10)
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
--- NOTE | 2018-08-04 20:50 | P.PNPSY ---
Subjective Remarks: Patient seen for follow-up, chart reviewed. Discussion with nursing staff reported that patient with no further behavioral services. Compliant with medication. Patient presented to mental health court and was requesting discharge from the staff that she had inpatient psychiatric hospitalization for stabilization. Patient was later seen to be, cooperative. Patient found to be on the phone prior to interview. He states that he is missing his and states that his wants him to be stable prior to discharge. He mentions tolerating medications well, mood has been "great", continues to state having moments where he cannot remember things. Reports having sleep difficulty due to arm pain but noted with adequate range of movement. Review of Systems All other systems reviewed negative except as stated in HPI Mental Status Examination Appearance: Appropriate Consciousness: Alert Orientation: x4 Motor Activity: Normal gait Speech: Unremarkable Language: Adequate Fund of Knowledge: Adequate Attention and Concentration: Adequate Memory: Unremarkable Mood: Appropriate Affect: Appropriate Thought Process & Associations: Linear Thought Content: Preoccupations Hallucination Type: None Delusion Type: Bizarre, Paranoid Suicidal Ideation: No Suicidal Plan: No Suicidal Intention: No Homicidal Ideation: No Homicidal Plan: No Homicidal Intention: No Insight: Fair Judgment: Impulsive Assessment and Plan - Assessment (1) Unspecified psychosis Code(s): F29 - Unspecified psychosis not due to a substance or known physiological condition Status: Acute - Plan Plan: Patient noted with adequate behavioral control, tolerating medications well. Patient retained for further stabilization through court. Continue current treatment, continue to monitor mood and behavior. Discharge planning in progress. Justification for Continued Inpatient Stay: At risk for further decompensation at lower level of care.
[2018-08-04] MEDS: Ibuprofen 400 MG Tablet PO PRN (23:13)
[2018-08-05] MEDS: Insulin NovoLOG Aspart Correctional Sugar Inj SQ SCH ×5 (08:01→20:32)
[2018-08-05] MEDS: Divalproex 500 MG DR Tablet PO SCH ×2 (09:08→21:03)
[2018-08-05] MEDS: Potassium Chloride 10 MEQ ER Capsule PO SCH (09:09)
[2018-08-05] MEDS: dilTIAZem CD 180 MG Capsule PO SCH (09:09)
[2018-08-05] MEDS: Senna/Docusate Sodium 8.6/50 MG Tablet PO SCH ×2 (09:09→21:03)
[2018-08-05] MEDS: Ibuprofen 400 MG Tablet PO PRN ×2 (15:28→23:15)
[2018-08-06] MEDS: Ibuprofen 400 MG Tablet PO PRN ×2 (06:18→18:27)
[2018-08-06] MEDS: Insulin NovoLOG Aspart Correctional Sugar Inj SQ SCH ×4 (08:00→21:12)
[2018-08-06] MEDS: Senna/Docusate Sodium 8.6/50 MG Tablet PO SCH ×2 (09:00→21:12)
[2018-08-06] MEDS: Divalproex 500 MG DR Tablet PO SCH ×2 (09:02→21:12)
[2018-08-06] MEDS: dilTIAZem CD 180 MG Capsule PO SCH (09:02)
[2018-08-06] MEDS: Potassium Chloride 10 MEQ ER Capsule PO SCH (09:02)
--- NOTE | 2018-08-06 18:05 | P.PNPSY ---
Subjective Remarks: Reviewed electronic medical records and discussed case with staff. Follow-up was conducted in the day room with TEX Padilla present. Patient noted to be extremely intrusive into other patients business and frequently gives out his opinion and advice. He reports that he is "doing great". States that he is not sleeping very well due to his arm pain and he cannot get comfortable. States that his appetite's good. When asked about his mood he says "it is wonderful, I want to move in here". He seems to be getting fairly close with another patient Cory. He complains about anxiety however, I do not see any indication of this. Mental Status Examination Appearance: Disheveled Consciousness: Alert Orientation: x4 Motor Activity: Normal gait Speech: Unremarkable Language: Adequate Fund of Knowledge: Adequate Attention and Concentration: Adequate Memory: Unremarkable Mood: Appropriate Affect: Appropriate Thought Process & Associations: Tangential Thought Content: Bizarre thinking, Ideas of reference, Derealization, Preoccupations, Delusional Hallucination Type: None Delusion Type: Bizarre, Paranoid Suicidal Ideation: No Suicidal Plan: No Suicidal Intention: No Homicidal Ideation: No Homicidal Plan: No Homicidal Intention: No Insight: Poor Judgment: Poor Assessment and Plan - Assessment (1) Schizophrenia Code(s): F20.9 - Schizophrenia, unspecified Status: Acute - Plan Plan: Patient will be reevaluated Wednesday by the attending psychiatrist. Continue with current treatment plan. Justification for Continued Inpatient Stay: Moving this patient to a less restrictive environment would likely result in decompensation. (1) Schizophrenia Qualifiers: Schizophrenia type: unspecified Qualified Code(s): F20.9 - Schizophrenia, unspecified
[2018-08-07] MEDS: Ibuprofen 400 MG Tablet PO PRN ×3 (00:48→22:59)
[2018-08-07] MEDS: Insulin NovoLOG Aspart Correctional Sugar Inj SQ SCH ×4 (07:30→21:42)
[2018-08-07] MEDS: Divalproex 500 MG DR Tablet PO SCH ×2 (08:45→20:31)
[2018-08-07] MEDS: Potassium Chloride 10 MEQ ER Capsule PO SCH (08:45)
[2018-08-07] MEDS: Senna/Docusate Sodium 8.6/50 MG Tablet PO SCH ×2 (08:46→20:31)
[2018-08-07] MEDS: dilTIAZem CD 180 MG Capsule PO SCH (08:46)
--- NOTE | 2018-08-07 10:55 | P.PNPSY ---
Subjective Remarks: LATE ENTRY FOR 08/05/18 Patient seen for follow up; chart reviewed. Discussion with nursing staff reported that patient compliant with medications. Patient mentions having seen the air conditioning equipment mechanic today, remorseful for his recent behavior, spoke with as well. Patient continues to report some RT shoulder discomfort, reporting improved appetite, mood has been "good", deneis feeling depressed stating missing his . He reports tolerating medications well. Denies any SI, HI, AVH or delusions at this time. Patient states having difficulty managing his anger that he would "get angry quickly". Review of Systems All other systems reviewed negative except as stated in HPI Mental Status Examination Appearance: Appropriate Consciousness: Alert Orientation: x4 Motor Activity: Normal gait Speech: Unremarkable Language: Adequate Fund of Knowledge: Adequate Attention and Concentration: Adequate Memory: Unremarkable Mood: Appropriate Affect: Appropriate Thought Process & Associations: Linear Thought Content: Preoccupations Hallucination Type: None Delusion Type: Bizarre, Paranoid Suicidal Ideation: No Suicidal Plan: No Suicidal Intention: No Homicidal Ideation: No Homicidal Plan: No Homicidal Intention: No Insight: Fair Judgment: Impulsive Assessment and Plan - Assessment (1) Unspecified psychosis Code(s): F29 - Unspecified psychosis not due to a substance or known physiological condition Status: Acute - Plan Plan: Patient tolerating medications well, will obtain VPA level on 08/08/18. Continue current treatment, continue to monitor mood and behavior. Discharge planning in progress. Justification for Continued Inpatient Stay: At risk for further decompensation at lower level of care.
--- NOTE | 2018-08-07 15:34 | P.PNPSY ---
Subjective Remarks: Reviewed electronic medical records and discussed case with staff. Follow-up was conducted in the dayroom. Patient is complaining about shoulder pain. Will increase his motrin to 600 mg. He states that he has increased anxiety. He is preoccupied by his feet that are very dry. He has been given lotion by the nursing staff, but he feels that should be healing quicker. He has been interacting with two other patients on the unit who have been displaying behaviors like they are "in-charge." The nursing staff has redirected him several times. Valporic Acid level ordered for 09/08/18. Review of Systems All other systems reviewed negative except as stated in HPI Mental Status Examination Appearance: Appropriate Consciousness: Alert Orientation: x4 Motor Activity: Normal gait Speech: Unremarkable Language: Adequate Fund of Knowledge: Adequate Attention and Concentration: Adequate Memory: Unremarkable Mood: Appropriate Affect: Appropriate Thought Process & Associations: Linear Thought Content: Preoccupations (his dry feet ) Hallucination Type: None Delusion Type: Bizarre, Paranoid Suicidal Ideation: No Suicidal Plan: No Suicidal Intention: No Homicidal Ideation: No Homicidal Plan: No Homicidal Intention: No Insight: Fair Judgment: Impulsive Assessment and Plan - Assessment (1) Schizophrenia Code(s): F20.9 - Schizophrenia, unspecified Status: Acute - Plan Plan: Continue current treatment plan. Patient will meet with psychiatrist on Wednesday. Justification for Continued Inpatient Stay: Moving patient to a less restrictive environment may result in his decompensation. (1) Schizophrenia Qualifiers: Schizophrenia type: unspecified Qualified Code(s): F20.9 - Schizophrenia, unspecified
[2018-08-08] MEDS: Ibuprofen 400 MG Tablet PO PRN (05:28)
[2018-08-08 06:10] VITALS: BP 151/86; PULSE 87; RESP 20; TEMP 98.1; O2SAT 97
[2018-08-08] MEDS ORDERED: Ibuprofen 600 MG Tablet PO PRN (08:15)
[2018-08-08] MEDS: Senna/Docusate Sodium 8.6/50 MG Tablet PO SCH (08:18)
[2018-08-08] MEDS: Divalproex 500 MG DR Tablet PO SCH (08:19)
[2018-08-08] MEDS: Potassium Chloride 10 MEQ ER Capsule PO SCH (08:19)
[2018-08-08] MEDS: dilTIAZem CD 180 MG Capsule PO SCH (08:19)
[2018-08-08] MEDS: Insulin NovoLOG Aspart Correctional Sugar Inj SQ SCH ×3 (08:21→16:51)
--- NOTE | 2018-08-08 13:57 | P.TTN ---
- Patient Problems Problems: 1. Discharge planning 2. Medication compliance 3. Knowledge deficit 4. Lack of coping skills - Progress Toward Goals Provider Present: Dr. Karrie Kenny (August 08, 2018, patient meets criteria for discharge.) Provider Input: 08/03/2018: Per doctor, patient's medication is being titrated, patient present with an agitated, aggressive and violent behavior towards staff. Patient was transferred to [facility] a more restricted unit for his safety and treatment needs. Nurse(s) Present: RN, Nurse Input: 08/03/2018: Per Juju, TEX, patient is anxious, he does not take responsiblity for his behavior, isn't directable. Patient is taking his medication and eating meals. Medication was increase to address behavior and mood. Psychiatric Counselors Present: Jeanmarie Campbell Jr., [facility] (August 08, 2018 patient will discharge home today where he is domiciled with his and daughter.), Kavita Cordero [facility] Psychiatric Therapist Input: 08/03/2018: Patient will be dc home with when stable with outpatient follow-up Group Spec/RT/OT/WANG Present: Elvin Elam OT, FELIPE Gutierrez (Patient attends group and is appropriate,) Group Spec/RT/OT/WANG Input: 08/03/2018; patient has been unable to appropriately attend groups due to mood and unpredicable behavior - Documentation Teaching Recipient: Patient
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
== END 2018-08-08 18:20 | disposition home or self-care (01) ==
LOC: NEPD 08:02 → NEDA 08-01 09:51 → H4EA 08-01 15:25 → H270 08-02 22:00
PROVIDERS: ADMIT Student in an Organized Health Care Education/Training Program; ATTEND Student in an Organized Health Care Education/Training Program